=== PATIENT | female | born 1960 | race Caucasian/White ===

== ENCOUNTER 2023-03-22 17:17 | Emergency (ER) | payer MEDICAID ==
[~2023-03-22] VITALS: Ht 162.6 cm; Wt 91.0 kg
[2023-03-22 17:32] VITALS: O2SAT 96
[2023-03-22] MEDS: IBUPROFEN 600MG TABLET PO ONE (18:15)
[2023-03-22] MEDS: LIDOCAINE 5% PATCH TOP SCH (18:15)
[2023-03-22 20:50] VITALS: BP 119/87; PULSE 90; RESP 18; TEMP 98.6
== END 2023-03-22 21:00 | disposition home or self-care (01) ==
LOC: ER 17:17
DX: M54.2 Cervicalgia (principal)
CPT/HCPCS: 81025; 99283